=== PATIENT | male | born 1960 | race African-American/Black ===

== ENCOUNTER 2016-09-03 13:06 | Emergency (ER) | payer OTHER ==
[~2016-09-03] VITALS: Ht 182.9 cm; Wt 99.8 kg
[2016-09-03] MEDS ORDERED: Morphine Sulfate 4mg/ml Inj IVP ONE (14:00)
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
[2016-09-03 14:18] VITALS: BP 127/79
[2016-09-03] MEDS ORDERED: UNOBMED (14:21)
[2016-09-03 15:04] LABS: MEAN CORPUSCULAR HEMOGLOBIN 31.3 PG (27.0-31.0); MEAN CORPUSCULAR HGB CONC 33.2 G/DL (32.0-36.0); MEAN CORPUSCULAR VOLUME 94 FL (80-99); MEAN PLATELET VOLUME 7.4 FL (6.5-10.1); PLATELET COUNT 111 K/UL (150-450); RED CELL DISTRIBUTION WIDTH 12.6 % (11.6-14.8)
[2016-09-03 15:05] LABS: WHITE BLOOD COUNT 1.4 K/UL (4.8-10.8)
[2016-09-03 15:14] VITALS: BP 127/79
[2016-09-03 15:14] LABS: INR 6.1 (0.9-1.1)
[2016-09-03 16:22] VITALS: BP 125/81
[2016-09-03 16:31] LABS: ALANINE AMINOTRANSFERASE 6 U/L (3-41); ANION GAP 15 (5-15); ASPARTATE AMINO TRANSFERASE 11 U/L (5-40); CALCIUM 8.8 mg/dL (8.6-10.2); CARBON DIOXIDE 24 mEQ/L (20-30); CHLORIDE 101 mEQ/L (98-107); CREATININE 1.1 mg/dL (0.7-1.2); GLOMERULAR FILTRATION RATE > 60 mL/min (>60); HEMOLYSIS 2; POTASSIUM 3.5 mEQ/L (3.4-4.9); SODIUM 140 mEQ/L (135-145); TOTAL PROTEIN 6.7 g/dL (6.6-8.7)
[2016-09-03] MEDS ORDERED: D5 1/2NS w/KCl 20mEq 1,000 ML IV SCH (16:45)
[2016-09-03 17:20] LABS: BAND NEUTROPHILS % (MANUAL) 0 % (0-8); LYMPHOCYTES % (MANUAL) 28 % (20-45); NEUTROPHILS % (MANUAL) 52 % (45-75)
[2016-09-03 17:21] LABS: BASOPHILS % (MANUAL) 0 % (0-2); EOSINOPHILS % (MANUAL) 1 % (0-3); PLATELET ESTIMATE DECREASED
[2016-09-03 17:22] LABS: PLATELET MORPHOLOGY NORMAL
[2016-09-03 19:20] VITALS: BP 125/81
--- NOTE | 2016-09-04 15:03 | Cardiology Report ---
APPROVED REPORT EKG Measurement Heart [id number] Normal sinus rhythm Possible Left atrial enlargement Borderline ECG
== END 2016-09-03 19:36 | disposition short-term general hospital (02) ==
LOC: EMR 14:05
DX: T20.07XA Burn of unspecified degree of neck, initial encounter (principal); L98.499 Non-pressure chronic ulcer of skin of other sites with unspecified severity; Y84.2 Radiological procedure and radiotherapy as the cause of abnormal reaction of the patient, or of later complication, without mention of misadventure at the time of the procedure; Y92.9 Unspecified place or not applicable; R79.1 Abnormal coagulation profile; D72.819 Decreased white blood cell count, unspecified; R62.7 Adult failure to thrive; I10 Essential (primary) hypertension; Z85.89 Personal history of malignant neoplasm of other organs and systems
CPT/HCPCS: 36415; 80053; 85007; 85025; 85610; 85730; 86850; 86900; 86901; 93005; 96374; 96375; 99284; J2270; J2405